=== PATIENT | female | born 1970 | race African-American/Black ===

== ENCOUNTER 2017-12-25 07:37 | Day surgery (SDC) | payer OTHER ==
[2017-12-23 16:30] LABS: BASOPHILS 0.6 % (0-2); EOSINOPHILS 2.6 % (0-7); HEMATOCRIT 37.2 % (36.0-48.0); HEMOGLOBIN 12.8 g/dL (12-16); IMMATURE GRANULOCYTES 0.2 % (0-5); LYMPHOCYTES 43.1 % (15-50); MCH 32.7 pg (26.0-34.0); MCHC 34.4 g/dL (31.0-37.0); MCV 94.9 fL (80.0-100.0); MEAN PLATELET VOLUME 10.7 fL (7.4-10.4); MONOCYTES 7.4 % (2-11); NEUTROPHILS 46.1 % (40-80); PLATELET COUNT 169 10x3/uL (130-400); RBC 3.92 10x6/uL (4.00-5.40); WBC 4.6 10x3/uL (4.8-10.8)
[~2017-12-25] VITALS: Ht 167.6 cm; Wt 70.3 kg
--- NOTE | ~2017-12-25 | OP ---
PATIENT NAME: HERMILA MOREL MEDICAL RECORD: [id number] :68 LOCATION:D.OPS ADMISSION DATE: SURGEON: BARNEY COLLINS MD DATE OF OPERATION: 12/25/2017 PREOPERATIVE DIAGNOSES: 1. Menorrhagia. 2. Endometrial thickening on ultrasound. POSTOPERATIVE DIAGNOSIS: Endometrial polyps. PROCEDURE: Hysteroscopy, D&C. SURGEON: Barney Collins MD ANESTHESIA: General endotracheal. INTRAVENOUS FLUIDS: Per anesthesia record. HYSTEROSCOPIC FLUID LOSS: Approximately 100 cc of 0.9 normal saline. SPECIMENS: Endometrial curettings. COMPLICATIONS: None apparent. FINDINGS: 1. Grossly normal-appearing external genitalia and cervix. 2. Grossly normal-appearing endometrial cavity with small polyps between 1-3 mm clustered mainly on the posterior aspect. DESCRIPTION OF PROCEDURE: The patient was taken to the operating room where general anesthesia was achieved without difficulty. The patient was then prepped and draped in normal sterile fashion in the dorsal lithotomy position in the [facility]. At this point, the patient was prepped and draped and the bladder drained of approximately 50 cc of clear yellow urine. At this point, a Graves speculum was placed into the vagina. Cervix was identified and grasped on its anterior lip with a single tooth tenaculum. The patient was sounded and then dilated to approximately 6 mm, at which point the hysteroscope was introduced without resistance into the endometrial canal. Survey was performed. At this point, the hysteroscope was removed and further dilation to approximately 7 mm was performed and a #1 curette was used to remove the endometrial polyps. On hysteroscopy was then repeated with no polyp remaining in the endometrial cavity. The hysteroscope was then removed again and the single-tooth tenaculum was removed with good hemostasis noted from the tenaculum sites. The speculum was removed. The patient tolerated the procedure well and was transferred to postanesthesia recovery stable without incident. TRANSINT:[id number] Voice Confirmation ID: [id number] DOCUMENT ID: [id number] OPERATIVE REPORT [id number] HERMILA MOREL BARNEY COLLINS MD at 1808 CC: [id number] DICTATION DATE: 01/02/18 0456 DATA CONSULTANT: 01/02/18 0836 [facility] 12/25/17 [facility] [address] [facility] [place] [address]
[2017-12-25 08:10] VITALS: BP 90/55; Ht 167.6 cm; Wt 70.3 kg
[2017-12-25 08:19] LABS: HCG URINE NEGATIVE (NEGATIVE)
== END 2017-12-25 12:10 | disposition home or self-care (01) ==
LOC: D.OPS 07:37 → D.PAN 09:00 → D.OPS 09:00
PROVIDERS: Obstetrics & Gynecology
DX: N84.0 Polyp of corpus uteri (principal); N92.0 Excessive and frequent menstruation with regular cycle; Z01.812 Encounter for preprocedural laboratory examination; Z98.1 Arthrodesis status